=== PATIENT | male | born 1945 | race Caucasian/White ===

== ENCOUNTER 2016-10-04 06:25 | Day surgery (SDC) | payer BC ==
--- NOTE | ~2016-10-04 | OP ---
Record Of Operation [facility] [address] [place]. [address] NAME: ARVIND JULIEN : 45 STATUS : [facility]#: [id number] AGE: 71 ADM/REG DATE : 10/04/16 MR#: [id number] REPORT SERV DATE: 10/04/16 DICTATED BY: FLORENCIO DIAS DATE: 10/04/16 REPORT STATUS : Draft TRANSCRIBED BY: MODL DATE: 10/04/16 DATE OF PROCEDURE: 10/04/2016 PREOPERATIVE DIAGNOSIS: Recurrent left inguinal hernia. POSTOPERATIVE DIAGNOSIS: Recurrent left inguinal hernia. PROCEDURE: 1. Reduction and mesh patch repair of recurrent left inguinal hernia. 2. Left ilioinguinal nerve block. SURGEON: Florencio Dias M.D. DESCRIPTION OF PROCEDURE: The patient was brought to the operating suite, placed in a supine position, underwent satisfactory general endotracheal anesthesia without incident. The skin of the lower abdomen, which had been shaved was scrubbed prepped and draped in usual sterile fashion. 0.5% Marcaine with epinephrine was utilized as supplemental local anesthesia to perform a groin crease incision as well as an ilioinguinal nerve block at the anterior superior iliac spine. The old groin crease incision was utilized dissecting through the skin, subcutaneous tissue, and Bharti's fascia. The external oblique aponeurosis was opened in direction of its fibers. It was somewhat attenuated due to previous surgery in that area. Some Prolene suture was noted and the previous hernia mesh was palpated in the floor of the inguinal canal. With some difficulty due to adhesions, the cord structures were freed up off the previous polypropylene mesh and the mesh was left in situ. It appeared that the internal ring was somewhat dilated and enlarged and there was potential protrusion of preperitoneal fat through the ring. The cord structures were encircled was encircled with a 0.5 inch Bath drain and retracted. A piece of precut polypropylene mesh patch was chosen and underwent continuous direct suture of the inguinal canal floor starting medially at the pubic tubercle and continuing inferolaterally along the shelving portion of the ilioinguinal ligament and superolaterally along the aponeurosis transverse abdominis muscle. At the level of the internal ring, the mesh was snugged to cover the dilated opening and then the two suturing tails were sutured circumferential lateral to the ring and to themselves. The suture was cut and the mesh was trimmed. 0.5% Marcaine with epinephrine was instilled into the inguinal canal floor. The cord structures were placed back in the inguinal canal floor on top of the new mesh. External oblique aponeurosis as best as possible with the Bharti's fascia was used to cover the cord structures with running 3-0 Vicryl for this layer as well as subcutaneous tissue, running subcuticular stitch 4-0 Vicryl for the skin. Dermabond skin adhesive placed. The patient tolerated the procedure well. Termination of procedure sponge, needle, lap and instrument counts correct x3. ESTIMATED BLOOD LOSS: Less than 5 mL. Record Of Operation [address] [place]. [address] NAME: ARVIND JULIEN : 45 STATUS : [facility] PAT#: [id number] AGE: 71 ADM/REG DATE : 10/04/16 MR#: [id number] REPORT SERV DATE: 10/04/16 DICTATED BY: FLORENCIO DIAS DATE: 10/04/16 REPORT STATUS : Draft TRANSCRIBED BY: DEANDRE DATE: 10/04/16 SINA/DEANDRE Florencio Dias M.D. / [id number] CC: Brynn Drake NDavid
[~2016-10-04 06:25] MED LIST: CLARIT10 PO; LYRICA50 PO; NO HOME MEDS
== END 2016-10-04 12:08 | disposition home or self-care (01) ==
LOC: SDC 06:25
PROVIDERS: Specialist
PROC: 3E0T3BZ Introduction of Anesthetic Agent into Peripheral Nerves and Plexi, Percutaneous Approach (ICD-10-PCS; 2016-10-04)
PROC: 0YU60JZ Supplement Left Inguinal Region with Synthetic Substitute, Open Approach (ICD-10-PCS; principal; 2016-10-04 07:45)
DX: K40.91 Unilateral inguinal hernia, without obstruction or gangrene, recurrent (principal); I10 Essential (primary) hypertension; Z98.890 Other specified postprocedural states; Z90.49 Acquired absence of other specified parts of digestive tract; Z97.4 Presence of external hearing-aid; Z88.1 Allergy status to other antibiotic agents; Z79.899 Other long term (current) drug therapy; Z85.828 Personal history of other malignant neoplasm of skin
CPT/HCPCS: 80048; 85014; 85018; 93005; A9270-GY; C1781; J0690; J1885; J2250; J2405; J2710; J3010